=== PATIENT | male | born 1995 | race American Indian/Alaskan Native ===

== ENCOUNTER 2017-10-09 12:34 | Inpatient (IN) | payer MEDICARE ==
--- NOTE | 2017-10-09 14:08 | PDOC ---
History of Present Illness - General Chief Complaint: Pain Stated Complaint: ABD PAIN Time Seen by Provider: 10/09/17 12:48 History Source: Patient Exam Limitations: No Limitations - History of Present Illness Travel History: No Initial Comments: 10/09/17 14:00 21-year-old male presents to the emergency room with complaints of generalized abdominal distention along with cramping. Patient states has been constipated for the past 2 days and took an over the counter laxative this morning with minimal improvement. Patient states was able to pass small amount of hard stool with exertion. Patient denies fever, chills nausea, vomiting, recent travel, recent illness. Patient does state has had decreased appetite secondary to abdominal pain. Timing/Duration: reports: constant, getting worse Quality: reports: mild, moderate, cramping Abdominal Pain Onset Location: reports: generalized abdomen Pain Radiation: reports: no radiation Aggravating Factors: improves with: None Alleviating Factors: improves with: None Past History - Travel Traveled outside of the country in the last 30 days: No - Past Medical History Allergies/Adverse Reactions: Allergies Allergy/AdvReac Type Severity Reaction Status Date / Time No Known Allergies Allergy Verified 10/09/17 12:38 Home Medications: Ambulatory Orders NK [No Known Home Medication] 10/09/17 COPD: No - Surgical History Abdominal Surgery: Yes (rt ing hernia x2) - Suicide/Smoking/Psychosocial Hx Smoking History: Never smoked Have you smoked in the past 12 months: No Information on smoking cessation initiated: No Hx Alcohol Use: No Drug/Substance Use Hx: No Substance Use Type: None Patient Lives Alone: No Lives with/in: parents Review of Systems - Review of Systems Able to Perform ROS?: No Constitutional: No: Symptoms Reported HEENTM: No: Symptoms Reported Respiratory: No: Symptoms reported Cardiac (ROS): No: Symptoms Reported ABD/GI: Yes: Constipated, Abdominal cramping. No: Nausea, Vomiting : No: Symptoms Reported Musculoskeletal: No: Symptoms Reported Integumentary: No: Symptoms Reported Neurological: No: Symptoms reported Hematologic/Lymphatic: No: Symptoms Reported *Physical Exam - Vital Signs Last Vital Signs Temp Pulse Resp BP Pulse Ox 98.5 F 106 H 18 117/76 100 10/09/17 12:39 10/09/17 12:39 10/09/17 12:39 10/09/17 12:39 10/09/17 12:39 - Physical Exam General Appearance: Yes: Nourished, Appropriately Dressed. No: Apparent Distress HEENT: positive: EOMI, ARGENIS, TMs Normal, Pharynx Normal. negative: Pale Conjunctivae Neck: positive: Normal Thyroid, Supple Respiratory/Chest: positive: Lungs Clear, Normal Breath Sounds. negative: Respiratory Distress, Accessory Muscle Use Cardiovascular: positive: Regular Rhythm, Tachycardia. negative: Murmur Gastrointestinal/Abdominal: positive: Normal Bowel Sounds, Soft, Distended ( mild generalized), Tenderness (generalized. greater on the left lower quadrant and upper periumbilical) Musculoskeletal: negative: CVA Tenderness Extremity: positive: Normal Capillary Refill Integumentary: positive: Normal Color, Warm, Moist Neurologic: positive: Motor Strength 5/5 (ambulatory) ED Treatment Course - LABORATORY CBC & Chemistry Diagram: 10/09/17 15:25 10/09/17 15:25 - RADIOLOGY Radiology Studies Ordered: Category Date Time Status ABDOMEN FLAT & UPRIGHT [RAD] Stat Radiology 10/09/17 13:50 Ordered Medical Decision Making - Medical Decision Making 10/09/17 14:12 Patient here for evaluation of constipation now with generalized abdominal tenderness. Patient on exam had some distention of bowel sound x4. patient sent by Dr. Bland patient's primary care doctor. Patient ordered for abdominal flat and upright to rule out constipation/ obstruction 10/09/17 14:48 X-ray shows specific bowel gas pattern with slightly prominent loops of small bowel within the left upper quadrant. There is also some increased stool in the region of the rectum. Patient oil process stillman throughout his abdomen. Concerning for other etiology. Patient ordered for labs including IV fluids IV Tylenol and abdominal CT. 10/09/17 17:07 Laboratory Tests 10/09/17 10/09/17 15:25 15:25 WBC 13.7 H Hgb 14.8 Hct 43.0 Plt Count 247 Neutrophils % 66.4 Monocytes % 14.9 H Sodium 137 Potassium 4.3 Chloride 98 Carbon Dioxide 32 Anion Gap 7 L BUN 11 Creatinine 0.9 Creat Clearance w eGFR > 60 Random Glucose 100 Calcium 9.0 Total Bilirubin 0.9 AST 78 H ALT 195 H Alkaline Phosphatase 101 Total Protein 9.0 H Albumin 4.4 Patient approximately 5 days returned from [place]. Patient denies any symptoms in [place]. Patient denies drinking from well water, river water or other ill family members that traveled with him. Patient brought to ultrasound to assess liver prior to CAT scan. *DC/Admit/Observation/Transfer - Referrals Referrals: Mason Avila MD [Primary Care Provider] - - Patient Instructions - Post Discharge Activity
--- NOTE | 2017-10-09 14:40 | PDOC ---
*Physical Exam - Vital Signs Last Vital Signs Temp Pulse Resp BP Pulse Ox 98.5 F 106 H 18 117/76 100 10/09/17 12:39 10/09/17 12:39 10/09/17 12:39 10/09/17 12:39 10/09/17 12:39 Medical Decision Making - Medical Decision Making 10/09/17 14:39 Pt seen by the Advanced Practice Provider under my direct supervision Ancillary studies reviewed I agree with plan as outlined by the Advanced Practice Provider BYRON Lima *DC/Admit/Observation/Transfer - Referrals Referrals: Mason Avila MD [Primary Care Provider] - - Patient Instructions - Post Discharge Activity
[2017-10-09] MEDS ORDERED: ACETAMINOPHEN 1000 MG/100 ML VIAL (NON FORMULARY) IVPB ONE (14:48)
[2017-10-09] MEDS ORDERED: SODIUM CHLORIDE 1,000 ML IV STA (14:48)
[2017-10-09] MEDS ORDERED: ACETAMINOPHEN INJECTION 0 ML IVPB ONE (15:08)
[2017-10-09 15:28] LABS: BASO % 0.4 % (0-2.0); EOS % 2.4 % (0-4.5); HEMOGLOBIN 14.8 GM/dL (11.7-16.9); LYMPH % 15.9 % (8-40); MCH 29.5 pg (25.7-33.7); MCHC 34.3 g/dl (32.0-35.9); MEAN PLT VOLUME 8.5 fl (7.5-11.1); MONO % 14.9 % (3.8-10.2); NEUT % 66.4 % (42.8-82.8); PLATELET COUNT 247 K/MM3 (134-434); RDW 13.6 % (11.9-15.9); WHITE BLOOD COUNT 13.7 K/mm3 (4.0-10.0)
[2017-10-09] MEDS ORDERED: ACETAMINOPHEN INJECTION 100 ML IVPB ONE (15:33)
[2017-10-09 15:54] LABS: ALBUMIN 4.4 g/dl (3.4-5.0); ALK PHOS 101 U/L (45-117); ANION GAP 7 (8-16); BILIRUBIN,TOTAL 0.9 mg/dL (0.2-1.0); BLOOD UREA NITROGEN 11 mg/dL (7-18); CHLORIDE 98 mmol/L (98-107); CO2 32 mmol/L (21-32); CREATININE 0.9 mg/dL (0.7-1.3); GLUCOSE,RANDOM 100 mg/dL (74-106); POTASSIUM 4.3 mmol/L (3.5-5.1); SGOT/AST 78 U/L (15-37); SGPT/ALT 195 U/L (12-78); SODIUM 137 mmol/L (136-145)
--- NOTE | 2017-10-09 18:16 | PDOC ---
*Physical Exam - Vital Signs Last Vital Signs Temp Pulse Resp BP Pulse Ox 98.5 F 106 H 18 117/76 100 10/09/17 12:39 10/09/17 12:39 10/09/17 12:39 10/09/17 12:39 10/09/17 12:39 - Physical Exam General Appearance: Yes: Appropriately Dressed. No: Apparent Distress HEENT: positive: Normal ENT Inspection Neck: positive: Trachea midline, Supple Respiratory/Chest: positive: Lungs Clear, Normal Breath Sounds. negative: Respiratory Distress, Accessory Muscle Use Gastrointestinal/Abdominal: positive: Normal Bowel Sounds, Soft, Distended. negative: Tender Musculoskeletal: positive: Normal Inspection. negative: CVA Tenderness Extremity: positive: Normal Inspection Integumentary: positive: Normal Color, Dry, Warm Neurologic: positive: Alert, Normal Response ED Treatment Course - LABORATORY CBC & Chemistry Diagram: 10/09/17 15:25 10/09/17 15:25 - ADDITIONAL ORDERS Additional order review: Laboratory Results 10/09/17 15:25 Sodium 137 Potassium 4.3 Chloride 98 Carbon Dioxide 32 Anion Gap 7 L BUN 11 Creatinine 0.9 Creat Clearance w eGFR > 60 Random Glucose 100 Calcium 9.0 Total Bilirubin 0.9 AST 78 H ALT 195 H Alkaline Phosphatase 101 Total Protein 9.0 H Albumin 4.4 10/09/17 15:25 RBC 5.00 MCV 86.0 MCHC 34.3 RDW 13.6 MPV 8.5 Neutrophils % 66.4 Lymphocytes % 15.9 Monocytes % 14.9 H Eosinophils % 2.4 Basophils % 0.4 - Medications Given in the ED: ED Medications Discontinued Medications Generic Name Dose Route Start Last Admin Trade Name Sienna PRN Reason Stop Dose Admin Acetaminophen 1,000 mg 10/09/17 14:48 10/09/17 15:38 Ofirmev Injection - IVPB 10/09/17 14:49 1,000 mg ONCE ONE Administration Sodium Chloride 1,000 mls @ 1,000 mls/hr 10/09/17 14:48 10/09/17 15:38 Normal Saline - IV 10/09/17 15:47 1,000 mls/hr ASDIR STA Administration Progress Note - Progress Note Progress Note: Sign out received from BYRON Lima Summary of ED course Pertinent studies/lab/EKG/consults- pending CT results Meds given Anticipated plan/disposition- dispo after imaging Medical Decision Making - Medical Decision Making 10/09/17 18:22 Ultrasound as read by Dr. Howard: 1. No evidence of cholelithiasis or acute cholecystitis. 2. Borderline prominent common bile duct measuring approximately 5 mm in diameter. No evidence of intrahepatic ductal dilatation. This clearly clinically with serum biliary markers. 3. Hepatic steatosis. 4. A 10 mm x 7 mm nonobstructing right renal calculus. No right hydronephrosis. 10/09/17 18:47 CT of abdomen and pelvis as read by Dr. Blue: The distal half of the appendix relative to the proximal half demonstrates minimal nonspecific thickening. A small amount of mesenteric fluid accumulation seen about in the middle third of the appendix. The sinus could be a basis of acute appendicitis versus representing secondary inflammation. Mild concentric wall thickening is visualized along the terminal ileum. There is also a small amount of free fluid accumulation abutting the distal ileum. Mild nonspecific mesenteric soft tissue thickening is seen within the abdomen and pelvis ventrally. Mild peripancreatic soft tissue stranding is noted which may be basis of acute/ recent pancreatitis. Concentric wall thickening is noted along the length of the second, third and fourth portions of the duodenal sweep maybe the basis of duodenitis versus right present of reactive edema due to acute pancreatitis. A 1 cm focus is noted abutting the sigmoid colon which may be the basis of chronic and probably less likely acute epiploic appendicitis. Prominent diffuse hepatic steatosis. Mild left lobe discoid atelectasis. Trace left pleural effusion. Abdomen is currently soft but distended. No palpable masses present. No tenderness present. Given mildly elevated white count and CT findings and will consult Dr. Norman to discuss the case. 10/09/17 19:[address] Bland. To be admitted to the hospital with consult to Dr. Hodges for surgery. *DC/Admit/Observation/Transfer Diagnosis at time of Disposition: Appendicitis Qualifiers: Appendicitis type: acute appendicitis Acute appendicitis type: unspecified acute appendicitis type Qualified Code(s): K35.80 - Unspecified acute appendicitis - Discharge Dispostion Condition at time of disposition: Guarded Admit: Yes - Referrals - Patient Instructions - Post Discharge Activity
[2017-10-09] MEDS ORDERED: ONDANSETRON 4 MG/2 ML VIAL IVPUSH PRN (20:19)
[2017-10-09] MEDS ORDERED: PROMETHAZINE HCL 25 MG/1 ML VIAL IVPUSH PRN (20:19)
[2017-10-09] MEDS ORDERED: LACTATED RINGERS SOLUTION 1,000 ML IV SCH (20:30)
--- NOTE | 2017-10-09 20:44 | CONSULT ---
Consult Consult Specialty:: Surgery Referred by:: Dr. Avila Reason for Consultation:: Abdominal pain for 2 days. - History of Present Illness Chief Complaint: C/O Left sided abdominal pain x 2 days. - History Source History Provided By: Patient Limitations to Obtaining History: No Limitations - Past Medical History Gastrointestinal: Yes: Other (Bilateral inguinal hernia repair in [facility] , 2 months ago.) - Past Surgical History Past Surgical History: Yes: Hernia Repair (Bilateral inguinal hernia repair in [facility], 2 months ago.) - Alcohol/Substance Use Hx Alcohol Use: No - Smoking History Smoking history: Never smoked Have you smoked in the past 12 months: No - Social History Usual Living Arrangement: With Parent History of Recent Travel: Yes Home Medications - Allergies Allergies/Adverse Reactions: Allergies Allergy/AdvReac Type Severity Reaction Status Date / Time No Known Allergies Allergy Verified 10/09/17 12:38 - Home Medications Home Medications: Ambulatory Orders NK [No Known Home Medication] 10/09/17 Physical Exam Vital Signs: Vital Signs Temperature 98.3 F 10/09/17 18:33 Pulse Rate 95 H 10/09/17 18:33 Respiratory Rate 20 10/09/17 18:33 Blood Pressure 129/79 10/09/17 18:33 O2 Sat by Pulse Oximetry (%) 100 10/09/17 18:33 Gastrointestinal: Yes: Other (Obese abdomen. Is tender on his leftb side of abdomen , and minimally in right flank. No rebound, no guarding Surgical scar of recent bilateral inguinal herniae repair.) Labs: CBC, BMP 10/09/17 15:25 10/09/17 15:25 Imaging - Results Cat Scan: Report Reviewed, Image Reviewed (Ct scan reviewed with Dr. Blue. There is significant thickening of the omentum and soft tissues in left side of abdomen with nodularity of the omentum. There is inflammatory changes around the body and tail of the pancreas. There is fluid around the terminal ilium and duodenum. Appendix is visualised , with mild thickening of the distal appendix.) Ultrasound: Report Reviewed, Image Reviewed (No gallstones ,) Problem List - Problems (1) Abdominal pain of multiple sites Code(s): R10.9 - UNSPECIFIED ABDOMINAL PAIN (2) Inflammation of intestines Code(s): K52.9 - NONINFECTIVE GASTROENTERITIS AND COLITIS, UNSPECIFIED (3) Acute inflammation of the pancreas Code(s): K85.90 - ACUTE PANCREATITIS WITHOUT NECROSIS OR INFECTION, UNSP Qualifiers: Pancreatitis type: unspecified pancreatitis type Acute pancreatitis complication: unspecified Qualified Code(s): K85.90 - Acute pancreatitis without necrosis or infection, unspecified (4) Omental mass Code(s): K66.8 - OTHER SPECIFIED DISORDERS OF PERITONEUM Assessment/Plan Impression : Does not appear to have acute pancreatitis. Symptoms of pain are more on the left sideof abdomen. Nodularity of omentum is of concern. Inflammatory changes at multiple sites in the abdomen , around the duodenum , pancreas, terminal ilium, and minimally around the appendix/. No abdominal clinical findings in the right lower quadrant. The patient is explained of the findings, with his father by his side. Discussed my findings and recommendation to Dr. Avila. He will be admitted and treated with antibiotics. Will obtain a gi consultwith Dr. Briggs. Will need a follow up CT scan
[2017-10-09] MEDS ORDERED: HYDROmorphone HCL CARPU-JECT 1 MG/1 ML DISP.SYRIN IVPB PRN (21:17)
[2017-10-09 21:19] LABS: URINE APPEARANCE CLEAR; URINE COLOR YELLOW
[2017-10-09 21:20] LABS: URINE BILIRUBIN NEGATIVE (<2.0 mg/dL); URINE GLUCOSE (UA) NEGATIVE (NEGATIVE); URINE KETONE NEGATIVE (NEGATIVE); URINE LEUK ESTERASE NEGATIVE (NEGATIVE); URINE NITRITE NEGATIVE (NEGATIVE); URINE PROTEIN NEGATIVE (NEGATIVE); URINE UROBILINOGEN NORMAL mg/dL (0.2-1.0)
[2017-10-09 21:21] LABS: URINE BLOOD 3+ (NEGATIVE)
[2017-10-09] MEDS ORDERED: HYDROmorphone HCL CARPU-JECT 4 MG/1 ML DISP.SYRIN IVPB PRN (21:38)
[2017-10-09] MEDS: LACTATED RINGERS SOLUTION 1,000 ML IV SCH (21:53)
[2017-10-09 23:58] VITALS: BMI 24.3
[2017-10-10] MEDS: LACTATED RINGERS SOLUTION 1,000 ML IV SCH (08:42)
[2017-10-10] MEDS ORDERED: ACETAMINOPHEN 1000 MG/100 ML VIAL (NON FORMULARY) IVPB ONE (08:45)
[2017-10-10 08:53] LABS: BASO % 0.7 % (0-2.0); EOS % 3.5 % (0-4.5); HEMATOCRIT 38.8 % (35.4-49); LYMPH % 14.1 % (8-40); MCH 29.1 pg (25.7-33.7); MCHC 33.7 g/dl (32.0-35.9); MEAN CELL VOLUME 86.5 fl (80-96); MEAN PLT VOLUME 7.9 fl (7.5-11.1); MONO % 12.2 % (3.8-10.2); NEUT % 69.5 % (42.8-82.8); PLATELET COUNT 228 K/MM3 (134-434); RBC 4.48 M/mm3 (4.00-5.60); RDW 13.2 % (11.9-15.9)
[2017-10-10 09:22] LABS: AMYLASE 130 U/L (25-115)
[2017-10-10 09:27] LABS: ALBUMIN 3.7 g/dl (3.4-5.0); ANION GAP 9 (8-16); BILIRUBIN,TOTAL 0.8 mg/dL (0.2-1.0); BLOOD UREA NITROGEN 8 mg/dL (7-18); CALCIUM 8.9 mg/dL (8.5-10.1); CHLORIDE 102 mmol/L (98-107); CO2 28 mmol/L (21-32); CREATININE 0.8 mg/dL (0.7-1.3); GLUCOSE,RANDOM 87 mg/dL (74-106); POTASSIUM 4.4 mmol/L (3.5-5.1); SGOT/AST 46 U/L (15-37); SGPT/ALT 150 U/L (12-78); SODIUM 139 mmol/L (136-145); TOT PROT 7.6 g/dl (6.4-8.2)
[2017-10-10 09:28] LABS: ALK PHOS 82 U/L (45-117)
[2017-10-10 09:30] LABS: LIPASE 1453 U/L (73-393)
--- NOTE | 2017-10-10 10:11 | HP ---
Admitting History and Physical - Primary Care Physician PCP: Mason Avila - Admission Chief Complaint: Abd pain History of Present Illness: 21-year-old male presents to the emergency room with complaints of generalized abdominal distention along with cramping. Patient states has been constipated for the past 2 days and took an over the counter laxative this morning with minimal improvement. Patient states was able to pass small amount of hard stool with exertion. Patient denies fever, chills nausea, vomiting, recent travel, recent illness. Patient does state has had decreased appetite secondary to abdominal pain. - Past Medical History Gastrointestinal: Yes: Other (Bilateral inguinal hernia repair in [facility] , 2 months ago.) - Past Surgical History Past Surgical History: Yes: Hernia Repair (Bilateral inguinal hernia repair in [facility], 2 months ago.) - Smoking History Smoking history: Never smoked Have you smoked in the past 12 months: No - Alcohol/Substance Use Hx Alcohol Use: No - Social History History of Recent Travel: Yes Home Medications - Allergies Allergies/Adverse Reactions: Allergies Allergy/AdvReac Type Severity Reaction Status Date / Time No Known Allergies Allergy Verified 10/09/17 12:38 - Home Medications Home Medications: Ambulatory Orders NK [No Known Home Medication] 10/09/17 Family Disease History - Family Disease History Family History: Unremarkable Review of Systems - Review of Systems Constitutional: reports: Chills Eyes: denies: Blind Spots, Blurred Vision HENT: denies: Difficult Swallowing, Ear Discharge Neck: denies: Decreased ROM, Lumps Respiratory: denies: Cough, Exercise Intolerance, Hemoptysis Gastrointestinal: reports: Abdominal Pain, Bloating, Constipation Musculoskeletal: denies: Back Pain, Decreased ROM Integumentary: denies: Blister, Bruising Neurological: denies: Change in LOC, Change in Speech Endocrine: denies: Excessive Sweating, Flushing, Increased Hunger Physical Examination Vital Signs: Vital Signs Temperature 98.7 F 10/10/17 08:17 Pulse Rate 103 H 10/10/17 08:17 Respiratory Rate 18 10/10/17 08:17 Blood Pressure 127/71 10/10/17 08:17 O2 Sat by Pulse Oximetry (%) 96 10/10/17 08:57 Constitutional: Yes: Well Nourished, No Distress Eyes: Yes: Conjunctiva Clear, EOM Intact HENT: Yes: Atraumatic, Normocephalic. No: Drooling, Epistaxis, Hoarseness, Nasal Congestion Neck: Yes: Supple, Trachea Midline. No: Lymphadenopathy Cardiovascular: Yes: Regular Rate and Rhythm, S1, S2. No: Bradycardia, Tachycardia, JVD, Gallop, Murmur Respiratory: Yes: Regular, CTA Bilaterally Gastrointestinal: Yes: Normal Bowel Sounds, Distention, Tenderness, Tenderness, Epigastrium ...Rectal Exam: Yes: Deferred Musculoskeletal: No: Back Pain, Joint Stiffness Edema: No Peripheral Pulses WNL: Yes Neurological: Yes: Alert, Oriented. No: Aphasia, Asterixis ...Motor Strength: WNL, LUE, LLE, RUE, RLE Psychiatric: Yes: Alert, Oriented. No: Agitated Labs: CBC, BMP 10/10/17 08:45 10/10/17 08:45 Imaging - Results Cat Scan: Report Reviewed Ultrasound: Report Reviewed Problem List - Problems (1) Inflammation of intestines Assessment/Plan: Patient has inflamatory /infectious process improving with management, inflamed appedics but no appendicitis mild pancreatitis f/u lipse level, GI and Surgery input. Code(s): K52.9 - NONINFECTIVE GASTROENTERITIS AND COLITIS, UNSPECIFIED (2) Abdominal pain Assessment/Plan: improved cont current management Code(s): R10.9 - UNSPECIFIED ABDOMINAL PAIN (3) Acute pancreatitis Assessment/Plan: Start clear liquid f/u lipse level. Code(s): K85.90 - ACUTE PANCREATITIS WITHOUT NECROSIS OR INFECTION, UNSP
[2017-10-10] MEDS: D5-1/2NS+10 MEQ KCL - 10 MEQ/1,000 ML INFUS.BAG IV SCH (10:48)
--- NOTE | 2017-10-10 12:11 | PN ---
Progress Note, Physician - Current Medication List Current Medications: Active Medications Hydromorphone HCl (Dilaudid Injection -) 1 mg IVPB Q4H PRN PRN Reason: PAIN LEVEL 6-10 Last Admin: 10/10/17 00:12 Dose: 1 mg Levofloxacin (Levaquin 750 Mg Premixed Ivpb -) 750 mg in 150 mls @ 150 mls/hr IVPB DAILY PAM PRN Reason: Protocol Last Admin: 10/10/17 09:19 Dose: 150 mls/hr Metronidazole (Flagyl 500mg Premixed Ivpb -) 500 mg in 100 mls @ 100 mls/hr IVPB Q8H-IV PAM Last Admin: 10/10/17 09:18 Dose: 100 mls/hr Potassium Chloride/Dextrose/Sod Cl (D5-1/2ns+10 Meq Kcl -) 10 meq in 1,000 mls @ 100 mls/hr IV ASDIR PAM Last Admin: 10/10/17 10:48 Dose: 100 mls/hr Ondansetron HCl (Zofran Injection) 4 mg IVPUSH Q6H PRN PRN Reason: NAUSEA AND/OR VOMITING Last Admin: 10/10/17 02:09 Dose: 4 mg Promethazine HCl (Phenergan Injection -) 12.5 mg IVPUSH Q6H PRN PRN Reason: NAUSEA-FOR RESCUE AFTER 15 MIN - Objective Vital Signs: Vital Signs Temperature 98.7 F 10/10/17 08:17 Pulse Rate 103 H 10/10/17 08:17 Respiratory Rate 18 10/10/17 08:17 Blood Pressure 127/71 10/10/17 08:17 O2 Sat by Pulse Oximetry (%) 96 10/10/17 08:57 Labs: CBC, BMP 10/10/17 08:45 10/10/17 08:45 Problem List - Problems (1) Abdominal pain of multiple sites Code(s): R10.9 - UNSPECIFIED ABDOMINAL PAIN (2) Inflammation of intestines Code(s): K52.9 - NONINFECTIVE GASTROENTERITIS AND COLITIS, UNSPECIFIED (3) Acute inflammation of the pancreas Code(s): K85.90 - ACUTE PANCREATITIS WITHOUT NECROSIS OR INFECTION, UNSP Qualifiers: Pancreatitis type: unspecified pancreatitis type Acute pancreatitis complication: unspecified Qualified Code(s): K85.90 - Acute pancreatitis without necrosis or infection, unspecified (4) Omental mass Code(s): K66.8 - OTHER SPECIFIED DISORDERS OF PERITONEUM Assessment/Plan Surgery: Patient feels better. Has no abdominal pain. Abdomen [place] soft[place] [address]. Continue antibiotics. G.I. consult is pending. Possible discharge in am with oral antibiotics. Follow up in my office.
--- NOTE | 2017-10-10 14:51 | PN ---
Progress Note (short form) - Note Progress Note: GI CONSULTATION PLEASE SEE THE COMPLETE DICTATION SUBACUTE ABDOMINAL INFLAMMATORY PROCESS IN A 21YR OLD M WITHOUT PAST HISTORY NO TRAUMA, NO NEW MEDS, NO GALLSTONES OR HX OF ETOH BIOCHEMICAL AND RADIOGRAPHIC EVIDENCE OF MILD PANCREATITIS WITH POSSIBLE RLQ INFLAMMATORY PROCESS NO EVIDENCE OF BILIARY DISEASE SUSPECT SB FINDINGS REACTIVE AGREE WITH CURRENT RX IVF/PAIN MEDS/ F/U LABS PT IMPROVING, WOULD START CLEARS PO AND OBSERVE IF PT WORSENS OR HAS RISE IN WBC, THEN MAY NEED AN INTERVAL CT SCAN TO BE CERTAIN AN APPENDICITIS IS NOT EVOLVING THANKS, MD CORY
--- NOTE | 2017-10-10 16:03 | CONS ---
GASTROENTEROLOGY CONSULTATION DATE OF CONSULTATION: 10/10/2017 I was asked by Dr. Mason Avila to evaluate the patient for abdominal pain. The patient is a 21-year-old gentleman from [facility] who has no past medical history that he is aware of. He says he has had a bilateral inguinal hernia repair in the past. Other than that, he has no prior history. The patient states that for the past 3 days, he had onset of worsening abdominal pain and distention without significant radiation without fevers, chills or sweats. He had some vomiting yesterday. He thought he was constipated, was having trouble moving the bowels. He took a laxative, had a small bowel movement, but that did not resolve the problem. The patient has had a poor appetite for the past couple days. He does not smoke, drink or use drugs. He is a student. He is single. The only surgery as noted is the bilateral hernia repair and he has no known history of any drug allergy. Since he has been here, he states that he is feeling a little bit better. Most of his pain has gone away, but he still does not have a great appetite. He has no significant family history of gastrointestinal disease. In the hospital, his medications that he is receiving include Levaquin, Flagyl, Dilaudid, Zofran, and Phenergan. PHYSICAL EXAMINATION: General: On physical exam, he is well developed, well nourished, moving about easily, up and about, smiling, in no distress. Eyes: His sclerae are anicteric. Neck: Supple. Lungs: Clear. Heart: Regular. Abdomen: Does have bowel sounds. It is minimally distended and there is minimal tenderness to deep palpation in the epigastric region. There is no rebound or guarding. There are no masses detected. His lab data is notable in that his SMA-12 is normal. His ALT 150, AST 46, alkaline phosphatase 82, total protein 7.6, albumin 3.7. Came in with a lipase of 1400 and an amylase of 130. His imaging reveals that initially he had a sonogram of the abdomen that failed to detect any gallstones, cholecystitis or biliary issues. There was mild hepatic steatosis and a small nonobstructing right renal calculus. He then had a CAT scan of the abdomen and pelvis which was performed with IV and oral contrast. There was concern of appendicitis. On that film, it appeared that part of the appendix appeared thickened for nonspecific reasons. There was some mesenteric fluid and there was some concentric wall thickening of the small bowel, as well as mild peripancreatic soft-tissue stranding thought to represent acute, recent pancreatitis, and a lot of the bowel thickening was thought to be secondary due to the inflammatory process, but a focal duodenitis or ileitis could not be excluded. There was noted again hepatic steatosis. So, it is my impression that the patient is a 21-year-old gentleman from [facility] without past medical history. He has had inguinal hernia repairs. He comes in acutely with abdominal pain of unclear etiology. It is unclear whether he had a mild pancreatitis. He does not drink significant alcohol and there are no gallstones, so the etiology is uncertain. He has not had recent trauma or been on new medication. At the present time, he appears to be improving clinically and I would continue the current treatment. It is unclear whether he has had some other inflammatory process such as an epiploic appendagitis or whether there was evidence of a mild appendicitis. However, he appears to be responding clinically and biochemically at this time and therefore I would start him on clears and advance his diet as tolerated. If he has recurrence of pain or symptoms, then we would want to repeat the pancreatic enzymes and possibly repeat the imaging as an interval check to see whether he is developing a worsening inflammatory process such as a smoldering appendicitis, but at the present time he does not appear quite ill or toxic. I would continue the current care, start clears and advance, and follow up the labs. We will continue to be available to aid and manage this patient as needed. PARI RAY M.D. [id number]
[2017-10-10] MEDS ORDERED: ACETAMINOPHEN 325 MG TABLET (FP) PO ONE (17:15)
[2017-10-11 07:40] LABS: BASO % 0.5 % (0-2.0); EOS % 5.2 % (0-4.5); HEMATOCRIT 38.8 % (35.4-49); LYMPH % 21.7 % (8-40); MCHC 33.5 g/dl (32.0-35.9); MEAN CELL VOLUME 86.8 fl (80-96); MEAN PLT VOLUME 7.9 fl (7.5-11.1); MONO % 13.3 % (3.8-10.2); NEUT % 59.3 % (42.8-82.8); PLATELET COUNT 243 K/MM3 (134-434); RBC 4.47 M/mm3 (4.00-5.60); RDW 13.1 % (11.9-15.9)
[2017-10-11 08:18] LABS: ALBUMIN 3.7 g/dl (3.4-5.0); ANION GAP 8 (8-16); BLOOD UREA NITROGEN 5 mg/dL (7-18); CHLORIDE 104 mmol/L (98-107); CO2 26 mmol/L (21-32); CREATININE 0.7 mg/dL (0.7-1.3); GLUCOSE,RANDOM 113 mg/dL (74-106); POTASSIUM 4.2 mmol/L (3.5-5.1); SGOT/AST 39 U/L (15-37); SGPT/ALT 129 U/L (12-78); SODIUM 138 mmol/L (136-145)
[2017-10-11 08:19] LABS: ALK PHOS 83 U/L (45-117); BILIRUBIN,TOTAL 0.5 mg/dL (0.2-1.0); TOT PROT 7.9 g/dl (6.4-8.2)
[2017-10-11] MEDS ORDERED: ACETAMINOPHEN 325 MG TABLET (FP) PO ONE (13:15)
[2017-10-11] MEDS: D5-1/2NS+10 MEQ KCL - 10 MEQ/1,000 ML INFUS.BAG IV SCH ×2 (13:16)
[2017-10-11 13:35] LABS: LIPASE 1388 U/L (73-393)
[2017-10-11 14:23] VITALS: BP 141/85; PULSE 89; TEMP 98.8
--- NOTE | 2017-10-11 15:20 | DS ---
Physical Examination Vital Signs: Vital Signs Temperature 98.8 F 10/11/17 14:22 Pulse Rate 89 10/11/17 14:22 Respiratory Rate 18 10/11/17 14:22 Blood Pressure 141/85 10/11/17 14:22 O2 Sat by Pulse Oximetry (%) 99 10/11/17 08:56 - Constitutional: Yes: Well Nourished, No Distress Eyes: Yes: Conjunctiva Clear, EOM Intact HENT: Yes: Atraumatic, Normocephalic. No: Drooling, Epistaxis, Hoarseness, Nasal Congestion Neck: Yes: Supple, Trachea Midline. No: Lymphadenopathy Cardiovascular: Yes: Regular Rate and Rhythm, S1, S2. No: Bradycardia, Tachycardia, JVD, Gallop, Murmur Respiratory: Yes: Regular, CTA Bilaterally Gastrointestinal: Yes: Normal Bowel Sounds, Distention, Tenderness, Tenderness, Epigastrium Edema: No Peripheral Pulses WNL: Yes Neurological: Yes: Alert, Oriented. No: Aphasia, Asterixis Motor Strength: WNL, LUE, LLE, RUE, RLE Psychiatric: Yes: Alert, Oriented. No: Agitated Labs: CBC, BMP 10/11/17 07:00 10/11/17 07:00 Laboratory Results - last 24 hr 10/11/17 10/11/17 07:00 07:00 WBC 7.0 D RBC 4.47 Hgb 13.0 Hct 38.8 MCV 86.8 MCH 29.0 MCHC 33.5 RDW 13.1 Plt Count 243 MPV 7.9 Neutrophils % 59.3 Lymphocytes % 21.7 D Monocytes % 13.3 H Eosinophils % 5.2 H Basophils % 0.5 Sodium 138 Potassium 4.2 Chloride 104 Carbon Dioxide 26 Anion Gap 8 BUN 5 L D Creatinine 0.7 Creat Clearance w eGFR > 60 Random Glucose 113 H D Calcium 9.0 Total Bilirubin 0.5 D AST 39 H ALT 129 H Alkaline Phosphatase 83 Total Protein 7.9 Albumin 3.7 Lipase 1388 H Discharge Summary Reason For Visit: APPENDICITIS Current Active Problems Abdominal pain (Acute) Acute pancreatitis (Acute) Procedures: Principal: CT abd Hospital Course: 21-year-old male presents to the emergency room with complaints of generalized abdominal distention along with cramping. Patient states has been constipated for the past 2 days and took an over the counter laxative this morning with minimal improvement. Patient states was able to pass small amount of hard stool with exertion. Patient denies fever, chills nausea, vomiting, recent travel, recent illness. Patient does state has had decreased appetite secondary to abdominal pain. intially elevated lipase trending normal remained afebrile, CBC became normal remained symptomatic evaluated by GI and Surgery consult. Today asymptomatic denies any nausea, vomiting or diarrhea Condition: Stable - Instructions Diet, Activity, Other Instructions: Clear liquid advance as tolerates Referrals: Mason Avila MD [Primary Care Provider] - 10/16/17 Disposition: HOME - Home Medications Comprehensive Discharge Medication List: Ambulatory Orders Ranitidine [Zantac -] 150 mg PO DAILY #14 tablet 10/11/17 levoFLOXacin [Levaquin -] 750 mg PO DAILY #7 tablet 10/11/17 metroNIDAZOLE [Flagyl -] 500 mg PO BID #20 tablet 10/11/17
[2017-10-11] MEDS ORDERED: metroNIDAZOLE 250 MG TABLET PO SCH ×2 (16:15→22:00)
[2017-10-12] MEDS ORDERED: RANITIDINE HCL 150 MG TABLET (FP) PO SCH (10:00)
== END 2017-10-11 16:50 | disposition home or self-care (01) | DRG 282 ==
LOC: JER 12:34 → JERBED 20:02 → J6S 20:51
PROVIDERS: ADMIT Internal Medicine; ATTEND Internal Medicine
DX: K85.90 Acute pancreatitis without necrosis or infection, unspecified (principal); K52.9 Noninfective gastroenteritis and colitis, unspecified; R10.9 Unspecified abdominal pain; K66.8 Other specified disorders of peritoneum
CPT/HCPCS: 36415; 74019-TC-FY; 74177-TC; 76705-TC; 80053; 81003; 81015; 82150; 83605; 83690; 85025; 87040; 87086; 99283-25; J0131; J7030